=== PATIENT | male | born 1965 | race African-American/Black ===

== ENCOUNTER 2018-06-04 20:15 | Inpatient (IN) ==
[2018-06-04] MEDS ORDERED: ACETAMINOPHEN 500 MG TABLET ONE (21:31)
[2018-06-04] MEDS ORDERED: ACETAMINOPHEN 500 MG TABLET PO STA (21:32)
[2018-06-04 21:40] LABS: Basophils % 0.1 % (0.0-0.8); Eosinophils # 0.1 10*3/uL (0.0-0.87); Eosinophils % 0.7 % (0.00-10.9); Hematocrit 31.7 VOL% (42.0-52.0); Hemoglobin 9.8 GM/DL (14.0-18.0); Immature Granulocytes % 0.9 %; Immature Granulocytes Absolute 0.09 #; Lymphocytes # 0.6 10*3/uL (1.4-4.0); Lymphocytes % 5.3 % (21.2-54.2); Mean Corpuscular HGB Conc 30.9 GM/DL (32-36); Mean Corpuscular Hemoglobin 29 PG (27-34); Mean Corpuscular Volume 94.9 FL (87-102); Mean Platelet Volume 10.1 FL (9.6-12.0); Monocytes # 0.1 10*3/uL (0.11-0.8); Monocytes % 0.9 % (1.7-12.7); Neutrophils # 9.7 10*3/uL (1.4-7.4); Neutrophils % 92.1 % (38.7-73.9); Platelet Count 257 T/CUMM (130-400); Red Blood Count 3.34 MC/CUMM (3.8-5.5); Red Cell Distribution Width 16.1 % (9.3-17.3); White Blood Count 10.6 T/CUMM (4-12)
[2018-06-04 21:58] LABS: Band Neutrophils 7 % (0-10); Eosinophils 1 % (0-10); Lymphocytes 4 % (20-55); Segmented Neutrophils 88 % (50-85)
[2018-06-04 21:59] LABS: Anisocytosis 1+; Hypochromasia Slight; Platelet Estimate Adequate
[2018-06-04 22:00] LABS: Total Cells Counted 100
[2018-06-04 22:06] LABS: Albumin 2.9 G/DL (3.4-5.0); Bilirubin,Total 1.1 MG/DL (0.2-1.0); Calcium 8.4 MG/DL (8.5-10.1); Osmolality,Calculated 280.3 MOS/KG (273-304); Potassium 3.7 MMOL/L (3.5-5.1); Total Protein 8.4 G/DL (6.4-8.3)
[2018-06-04] MEDS ORDERED: SODIUM CHLORIDE 0.9% 1,000 ML IV STA (22:33)
[2018-06-04] MEDS ORDERED: GENTAMICIN INJ 80 MG in SODIUM CHLORIDE 0.9% 100 ML IV STA (22:33)
[2018-06-04] MEDS ORDERED: ALBUTEROL 2.5 MG/3 ML NEB RESP TX PRN (23:13)
[2018-06-04] MEDS ORDERED: SODIUM CHLORIDE 0.9% 1,000 ML IV ONE (23:24)
[2018-06-04] MEDS ORDERED: GENTAMICIN INJ 50 ML IV STA (23:29)
[2018-06-05 01:08] LABS: Apearance,Urine CLOUDY (Clear); Bacteria,Urine Many /HPF (Few); Bilirubin,Urine Negative (Negative); Blood, Urine Moderate mg/dL (Negative); Glucose,Urine (UA) Negative (Negative); Hyaline Casts,Urine 72 /LPF (0-3); Ketones,Urine 5 mg/dL (Negative); Mucus,Urine Occasional /LPF (Occasional); Nitrite,Urine Negative (Negative); Protein,Urine 100 MG/DL; RBC,Urine 74 /HPF (0-4); Squamous Epithelial Cell,Urine Occasional /HPF (0-10); Urine Color Amber (Yellow); Urine Specific Gravity 1.016 (1.001-1.035); WBC,Urine 642 /HPF (0-6)
[2018-06-05] MEDS: LEVOFLOXACIN INJ 500 MG in PREMIX 1 EACH IV SCH ×2 (02:12→22:42)
[2018-06-05] MEDS: SODIUM CHLORIDE 0.9% 1,000 ML IV SCH ×3 (02:13→17:22)
[2018-06-05] MEDS: PANTOPRAZOLE 40 MG VIAL IV SCH ×2 (02:14→22:42)
[2018-06-05] MEDS ORDERED: SODIUM CHLORIDE 0.9% 1,000 ML IV ONE (02:22)
[2018-06-05] MEDS ORDERED: SODIUM CHLORIDE 0.9% 500 ML IV ONE (02:25)
[2018-06-05] MEDS ORDERED: NOREPINEPHRINE 4 MG/4 ML VIAL IV ONE (03:26)
[2018-06-05 04:00] LABS: Basophils % 0.2 % (0.0-0.8); Eosinophils % 0.1 % (0.00-10.9); Hematocrit 26.8 VOL% (42.0-52.0); Hemoglobin 8.4 GM/DL (14.0-18.0); Immature Granulocytes % 0.9 %; Immature Granulocytes Absolute 0.16 #; Lymphocytes # 0.6 10*3/uL (1.4-4.0); Lymphocytes % 3.3 % (21.2-54.2); Mean Corpuscular HGB Conc 31.3 GM/DL (32-36); Mean Corpuscular Hemoglobin 29 PG (27-34); Mean Corpuscular Volume 93.1 FL (87-102); Monocytes # 0.4 10*3/uL (0.11-0.8); Monocytes % 2.6 % (1.7-12.7); Neutrophils # 15.7 10*3/uL (1.4-7.4); Neutrophils % 92.9 % (38.7-73.9); Platelet Count 235 T/CUMM (130-400); Red Blood Count 2.88 MC/CUMM (3.8-5.5); Red Cell Distribution Width 16.3 % (9.3-17.3); White Blood Count 16.9 T/CUMM (4-12)
[2018-06-05] MEDS ORDERED: VANCOMYCIN INJ 1,250 MG in SODIUM CHLORIDE 0.9% 250 ML IV SCH (04:00)
[2018-06-05 04:32] LABS: Albumin 2.3 G/DL (3.4-5.0); Bilirubin,Total 1.9 MG/DL (0.2-1.0); Calcium 7.8 MG/DL (8.5-10.1); Potassium 3.8 MMOL/L (3.5-5.1); Total Protein 7.1 G/DL (6.4-8.3)
[2018-06-05 04:36] LABS: Band Neutrophils 15 % (0-10); Lymphocytes 5 % (20-55); Metamyelocytes 1 %; Myelocytes 2 %; Segmented Neutrophils 73 % (50-85)
[2018-06-05 04:37] LABS: Hypochromasia 1+; Platelet Estimate Normal; Polychromasia Few
[2018-06-05 04:38] LABS: Total Cells Counted 100
[2018-06-05] MEDS: NOREPINEPHRINE 8 MG in SODIUM CHLORIDE 0.9% 242 ML IV PRN (04:40)
[2018-06-05 04:49] LABS: Lactic Acid 3.3 MMOL/L (0.4-2.0)
[2018-06-05] MEDS ORDERED: SKIN HEALING OINT (AQUAPHOR) 50 GM TUBE TOP PRN (09:33)
[2018-06-05] MEDS: ENOXAPARIN 40 MG/0.4 ML SYRINGE SUBCUT SCH (10:25)
[2018-06-05] MEDS: MORPHINE 4 MG/1 ML VIAL IV PRN ×2 (14:01→22:42)
[2018-06-05] MEDS: SKIN HEALING OINT (AQUAPHOR) 50 GM TUBE TOP SCH (17:22)
[2018-06-05] MEDS ORDERED: ACETAMINOPHEN 500 MG TABLET PO ONE (20:13)
[2018-06-06] MEDS: SODIUM CHLORIDE 0.9% 1,000 ML IV SCH ×3 (02:00→18:26)
[2018-06-06 05:09] LABS: Basophils # 0.1 10*3/uL (0.0-0.2); Basophils % 0.3 % (0.0-0.8); Eosinophils # 0.1 10*3/uL (0.0-0.87); Eosinophils % 0.4 % (0.00-10.9); Hematocrit 27.3 VOL% (42.0-52.0); Hemoglobin 8.3 GM/DL (14.0-18.0); Immature Granulocytes % 2.3 %; Immature Granulocytes Absolute 0.45 #; Lymphocytes # 2.4 10*3/uL (1.4-4.0); Lymphocytes % 12.3 % (21.2-54.2); Mean Corpuscular HGB Conc 30.4 GM/DL (32-36); Mean Corpuscular Hemoglobin 28 PG (27-34); Mean Corpuscular Volume 92.5 FL (87-102); Mean Platelet Volume 10.8 FL (9.6-12.0); Monocytes # 1.2 10*3/uL (0.11-0.8); Neutrophils # 15.3 10*3/uL (1.4-7.4); Neutrophils % 78.7 % (38.7-73.9); Platelet Count 230 T/CUMM (130-400); Red Blood Count 2.95 MC/CUMM (3.8-5.5); Red Cell Distribution Width 16.8 % (9.3-17.3); White Blood Count 19.5 T/CUMM (4-12)
[2018-06-06 05:17] LABS: Potassium 3.6 MMOL/L (3.5-5.1)
[2018-06-06 05:32] LABS: Band Neutrophils 7 % (0-10); Hypochromasia 1+; Lymphocytes 13 % (20-55); Platelet Estimate Adequate; Segmented Neutrophils 73 % (50-85); Total Cells Counted 100
[2018-06-06] MEDS: ACETAMINOPHEN 325 MG TABLET PO PRN ×2 (07:27→21:26)
[2018-06-06] MEDS: SKIN HEALING OINT (AQUAPHOR) 50 GM TUBE TOP SCH (09:50)
[2018-06-06] MEDS: ENOXAPARIN 40 MG/0.4 ML SYRINGE SUBCUT SCH (10:12)
[2018-06-06] MEDS ORDERED: MAGNESIUM SULF RIDER 2 GM in PREMIX 1 EACH IV ONE (10:22)
[2018-06-06] MEDS: MEROPENEM 1,000 MG in SODIUM CHLORIDE 0.9% 100 ML IV SCH ×2 (10:39→19:02)
[2018-06-06] MEDS: NOREPINEPHRINE 8 MG in SODIUM CHLORIDE 0.9% 242 ML IV PRN (14:33)
[2018-06-06] MEDS ORDERED: PROPOFOL 200 MG/20 ML VIAL IV ONE (15:53)
[2018-06-06] MEDS ORDERED: fentaNYL 100 MCG/2 ML VIAL ONE (15:53)
[2018-06-06] MEDS ORDERED: MIDAZOLAM 2 MG/2 ML VIAL ONE (15:53)
[2018-06-06 16:25] LABS: Apearance,Urine CLEAR (Clear); Bacteria,Urine Occasional /HPF (Few); Bilirubin,Urine Negative (Negative); Blood, Urine Large mg/dL (Negative); Glucose,Urine (UA) Negative (Negative); Ketones,Urine Negative (Negative); Nitrite,Urine Negative (Negative); Protein,Urine Negative; RBC,Urine 47 /HPF (0-4); Urine Color Yellow (Yellow); Urine Specific Gravity 1.009 (1.001-1.035); WBC,Urine 18 /HPF (0-6)
[2018-06-06] MEDS: MORPHINE 4 MG/1 ML VIAL IV PRN (21:26)
[2018-06-07] MEDS: LEVOFLOXACIN INJ 750 MG in PREMIX 1 EACH IV SCH ×2 (00:45→23:41)
[2018-06-07] MEDS: PANTOPRAZOLE 40 MG VIAL IV SCH ×2 (00:46→23:41)
[2018-06-07] MEDS: ONDANSETRON 4 MG/2 ML VIAL IV PRN (02:00)
[2018-06-07] MEDS: SODIUM CHLORIDE 0.9% 1,000 ML IV SCH ×3 (03:00→20:23)
[2018-06-07] MEDS: MEROPENEM 1,000 MG in SODIUM CHLORIDE 0.9% 100 ML IV SCH ×3 (03:00→17:45)
[2018-06-07 05:41] LABS: Basophils # 0.1 10*3/uL (0.0-0.2); Basophils % 0.4 % (0.0-0.8); Eosinophils # 0.2 10*3/uL (0.0-0.87); Eosinophils % 0.8 % (0.00-10.9); Hematocrit 25.1 VOL% (42.0-52.0); Hemoglobin 7.9 GM/DL (14.0-18.0); Immature Granulocytes % 2.7 %; Immature Granulocytes Absolute 0.52 #; Lymphocytes # 2.3 10*3/uL (1.4-4.0); Lymphocytes % 11.9 % (21.2-54.2); Mean Corpuscular HGB Conc 31.5 GM/DL (32-36); Mean Corpuscular Hemoglobin 30 PG (27-34); Mean Corpuscular Volume 93.7 FL (87-102); Mean Platelet Volume 10.7 FL (9.6-12.0); Monocytes # 0.9 10*3/uL (0.11-0.8); Monocytes % 4.6 % (1.7-12.7); Neutrophils # 15.6 10*3/uL (1.4-7.4); Neutrophils % 79.6 % (38.7-73.9); Platelet Count 215 T/CUMM (130-400); Red Blood Count 2.68 MC/CUMM (3.8-5.5); Red Cell Distribution Width 16.4 % (9.3-17.3); White Blood Count 19.6 T/CUMM (4-12)
[2018-06-07 05:59] LABS: Band Neutrophils 2 % (0-10); Hypochromasia 1+; Lymphocytes 14 % (20-55); Platelet Estimate Adequate; Segmented Neutrophils 83 % (50-85); Total Cells Counted 100
[2018-06-07 06:00] LABS: Ovalocytes Slight
[2018-06-07 06:14] LABS: Calcium 7.7 MG/DL (8.5-10.1); Osmolality,Calculated 280.1 MOS/KG (273-304); Potassium 3.6 MMOL/L (3.5-5.1)
[2018-06-07] MEDS: ENOXAPARIN 40 MG/0.4 ML SYRINGE SUBCUT SCH (08:50)
[2018-06-07] MEDS: SKIN HEALING OINT (AQUAPHOR) 50 GM TUBE TOP SCH (08:50)
[2018-06-07] MEDS: BACLOFEN 10 MG TABLET PO SCH ×2 (09:30→21:40)
[2018-06-07] MEDS: MORPHINE 4 MG/1 ML VIAL IV PRN ×2 (17:20→21:39)
[2018-06-07] MEDS: NOREPINEPHRINE 8 MG in SODIUM CHLORIDE 0.9% 242 ML IV PRN (21:46)
[2018-06-08] MEDS: SODIUM CHLORIDE 0.9% 1,000 ML IV SCH ×4 (00:36→23:34)
[2018-06-08] MEDS: MEROPENEM 1,000 MG in SODIUM CHLORIDE 0.9% 100 ML IV SCH ×3 (02:31→18:00)
[2018-06-08 04:43] LABS: Basophils # 0.1 10*3/uL (0.0-0.2); Basophils % 0.3 % (0.0-0.8); Eosinophils # 0.3 10*3/uL (0.0-0.87); Eosinophils % 1.5 % (0.00-10.9); Hematocrit 24.2 VOL% (42.0-52.0); Hemoglobin 7.5 GM/DL (14.0-18.0); Immature Granulocytes % 0.6 %; Lymphocytes % 17.5 % (21.2-54.2); Mean Corpuscular Hemoglobin 29 PG (27-34); Mean Corpuscular Volume 92.4 FL (87-102); Mean Platelet Volume 11.1 FL (9.6-12.0); Monocytes # 0.7 10*3/uL (0.11-0.8); Monocytes % 4.2 % (1.7-12.7); Neutrophils # 13.1 10*3/uL (1.4-7.4); Neutrophils % 75.9 % (38.7-73.9); Platelet Count 200 T/CUMM (130-400); Red Blood Count 2.62 MC/CUMM (3.8-5.5); Red Cell Distribution Width 16.3 % (9.3-17.3); White Blood Count 17.3 T/CUMM (4-12)
[2018-06-08 05:05] LABS: Calcium 7.5 MG/DL (8.5-10.1); Osmolality,Calculated 277.3 MOS/KG (273-304); Potassium 3.4 MMOL/L (3.5-5.1)
[2018-06-08 05:43] LABS: Band Neutrophils 3 % (0-10); Eosinophils 4 % (0-10); Hypochromasia 1+; Lymphocytes 21 % (20-55); Segmented Neutrophils 69 % (50-85); Total Cells Counted 100
[2018-06-08 05:44] LABS: Atypical Lymphocytes Few; Microcytosis 1+
[2018-06-08] MEDS: ENOXAPARIN 40 MG/0.4 ML SYRINGE SUBCUT SCH (09:08)
[2018-06-08] MEDS: BACLOFEN 10 MG TABLET PO SCH ×2 (09:08→20:54)
[2018-06-08] MEDS: MORPHINE 4 MG/1 ML VIAL IV PRN ×2 (09:08→19:15)
[2018-06-08] MEDS: SKIN HEALING OINT (AQUAPHOR) 50 GM TUBE TOP SCH (10:20)
[2018-06-08] MEDS: GENTAMICIN INJ 320 MG in SODIUM CHLORIDE 0.9% 100 ML IV SCH (12:30)
[2018-06-08] MEDS: PANTOPRAZOLE 40 MG VIAL IV SCH (23:42)
[2018-06-09] MEDS: MEROPENEM 1,000 MG in SODIUM CHLORIDE 0.9% 100 ML IV SCH ×3 (02:20→18:00)
[2018-06-09] MEDS: MORPHINE 4 MG/1 ML VIAL IV PRN ×4 (05:14→22:38)
[2018-06-09 06:38] LABS: Calcium 7.5 MG/DL (8.5-10.1); Potassium 3.5 MMOL/L (3.5-5.1)
[2018-06-09] MEDS: NOREPINEPHRINE 8 MG in SODIUM CHLORIDE 0.9% 242 ML IV PRN (07:42)
[2018-06-09] MEDS: SODIUM CHLORIDE 0.9% 1,000 ML IV SCH ×2 (07:42→15:31)
[2018-06-09] MEDS: SKIN HEALING OINT (AQUAPHOR) 50 GM TUBE TOP SCH (09:50)
[2018-06-09] MEDS: BACLOFEN 10 MG TABLET PO SCH ×2 (09:50→21:17)
[2018-06-09] MEDS: ENOXAPARIN 40 MG/0.4 ML SYRINGE SUBCUT SCH (09:50)
[2018-06-09] MEDS: GENTAMICIN INJ 320 MG in SODIUM CHLORIDE 0.9% 100 ML IV SCH (12:33)
[2018-06-10] MEDS: SODIUM CHLORIDE 0.9% 1,000 ML IV SCH ×4 (00:03→23:37)
[2018-06-10] MEDS: PANTOPRAZOLE 40 MG VIAL IV SCH (02:00)
[2018-06-10] MEDS: MEROPENEM 1,000 MG in SODIUM CHLORIDE 0.9% 100 ML IV SCH ×3 (04:05→18:33)
[2018-06-10 06:01] LABS: Basophils # 0.1 10*3/uL (0.0-0.2); Basophils % 0.4 % (0.0-0.8); Eosinophils # 0.4 10*3/uL (0.0-0.87); Eosinophils % 3.2 % (0.00-10.9); Hematocrit 24.5 VOL% (42.0-52.0); Hemoglobin 7.7 GM/DL (14.0-18.0); Immature Granulocytes % 3.3 %; Immature Granulocytes Absolute 0.42 #; Lymphocytes # 3.6 10*3/uL (1.4-4.0); Lymphocytes % 27.9 % (21.2-54.2); Mean Corpuscular HGB Conc 31.4 GM/DL (32-36); Mean Corpuscular Hemoglobin 29 PG (27-34); Mean Corpuscular Volume 91.1 FL (87-102); Monocytes # 0.7 10*3/uL (0.11-0.8); Monocytes % 5.3 % (1.7-12.7); Neutrophils # 7.7 10*3/uL (1.4-7.4); Neutrophils % 59.9 % (38.7-73.9); Platelet Count 197 T/CUMM (130-400); Red Blood Count 2.69 MC/CUMM (3.8-5.5); Red Cell Distribution Width 16.5 % (9.3-17.3); White Blood Count 12.8 T/CUMM (4-12)
[2018-06-10] MEDS: MORPHINE 4 MG/1 ML VIAL IV PRN ×3 (06:27→23:38)
[2018-06-10 06:28] LABS: Calcium 7.7 MG/DL (8.5-10.1); Osmolality,Calculated 280.1 MOS/KG (273-304); Potassium 3.4 MMOL/L (3.5-5.1)
[2018-06-10] MEDS: SKIN HEALING OINT (AQUAPHOR) 50 GM TUBE TOP SCH (09:04)
[2018-06-10] MEDS: ENOXAPARIN 40 MG/0.4 ML SYRINGE SUBCUT SCH (09:04)
[2018-06-10] MEDS: BACLOFEN 10 MG TABLET PO SCH ×2 (09:04→20:55)
[2018-06-10] MEDS: GENTAMICIN INJ 320 MG in SODIUM CHLORIDE 0.9% 100 ML IV SCH (12:27)
[2018-06-10] MEDS: ONDANSETRON 4 MG/2 ML VIAL IV PRN (20:56)
[2018-06-11] MEDS: MEROPENEM 1,000 MG in SODIUM CHLORIDE 0.9% 100 ML IV SCH ×3 (01:35→18:29)
[2018-06-11 06:32] LABS: Calcium 7.6 MG/DL (8.5-10.1); Osmolality,Calculated 277.3 MOS/KG (273-304); Potassium 3.5 MMOL/L (3.5-5.1)
[2018-06-11] MEDS: BACLOFEN 10 MG TABLET PO SCH ×2 (08:27→20:28)
[2018-06-11] MEDS: PANTOPRAZOLE 40 MG TABLET PO SCH (08:27)
[2018-06-11] MEDS: ENOXAPARIN 40 MG/0.4 ML SYRINGE SUBCUT SCH (08:27)
[2018-06-11] MEDS: MORPHINE 4 MG/1 ML VIAL IV PRN ×3 (08:31→20:28)
[2018-06-11] MEDS: SODIUM CHLORIDE 0.9% 1,000 ML IV SCH ×2 (10:18→20:27)
[2018-06-11] MEDS: SKIN HEALING OINT (AQUAPHOR) 50 GM TUBE TOP SCH (10:19)
[2018-06-11] MEDS: GENTAMICIN INJ 320 MG in SODIUM CHLORIDE 0.9% 100 ML IV SCH (14:57)
[2018-06-11] MEDS: DOCUSATE SODIUM 100 MG CAPSULE PO PRN (20:28)
[2018-06-11] MEDS: ONDANSETRON 4 MG/2 ML VIAL IV PRN (20:32)
[2018-06-12] MEDS: MEROPENEM 1,000 MG in SODIUM CHLORIDE 0.9% 100 ML IV SCH ×2 (01:48→09:29)
[2018-06-12] MEDS: SODIUM CHLORIDE 0.9% 1,000 ML IV SCH ×4 (01:50→23:47)
[2018-06-12] MEDS: ACETAMINOPHEN 325 MG TABLET PO PRN (06:47)
[2018-06-12] MEDS: MORPHINE 4 MG/1 ML VIAL IV PRN ×3 (09:21→21:18)
[2018-06-12] MEDS: BACLOFEN 10 MG TABLET PO SCH ×2 (09:21→21:17)
[2018-06-12] MEDS: PANTOPRAZOLE 40 MG TABLET PO SCH (09:21)
[2018-06-12] MEDS: ENOXAPARIN 40 MG/0.4 ML SYRINGE SUBCUT SCH (09:27)
[2018-06-12] MEDS: SKIN HEALING OINT (AQUAPHOR) 50 GM TUBE TOP SCH (14:10)
[2018-06-12] MEDS: GENTAMICIN INJ 320 MG in SODIUM CHLORIDE 0.9% 100 ML IV SCH (15:00)
[2018-06-13 06:39] LABS: Basophils # 0.1 10*3/uL (0.0-0.2); Basophils % 0.5 % (0.0-0.8); Eosinophils # 0.4 10*3/uL (0.0-0.87); Eosinophils % 3.2 % (0.00-10.9); Hematocrit 22.5 VOL% (42.0-52.0); Immature Granulocytes % 7.4 %; Immature Granulocytes Absolute 0.91 #; Lymphocytes # 3.7 10*3/uL (1.4-4.0); Lymphocytes % 30.4 % (21.2-54.2); Mean Corpuscular HGB Conc 31.1 GM/DL (32-36); Mean Corpuscular Hemoglobin 28 PG (27-34); Mean Corpuscular Volume 90.7 FL (87-102); Mean Platelet Volume 10.9 FL (9.6-12.0); Monocytes # 0.6 10*3/uL (0.11-0.8); Neutrophils # 6.6 10*3/uL (1.4-7.4); Neutrophils % 53.5 % (38.7-73.9); Platelet Count 318 T/CUMM (130-400); Red Blood Count 2.48 MC/CUMM (3.8-5.5); Red Cell Distribution Width 16.2 % (9.3-17.3); White Blood Count 12.3 T/CUMM (4-12)
[2018-06-13 06:53] LABS: Band Neutrophils 2 % (0-10); Eosinophils 5 % (0-10); Lymphocytes 27 % (20-55); Segmented Neutrophils 62 % (50-85); Total Cells Counted 100
[2018-06-13 06:54] LABS: Atypical Lymphocytes Few; Hypochromasia 1+; Microcytosis 1+; Ovalocytes Slight; Platelet Estimate Adequate
[2018-06-13 06:56] LABS: Calcium 7.4 MG/DL (8.5-10.1); Osmolality,Calculated 279.1 MOS/KG (273-304); Potassium 3.8 MMOL/L (3.5-5.1)
[2018-06-13] MEDS: SKIN HEALING OINT (AQUAPHOR) 50 GM TUBE TOP SCH (09:01)
[2018-06-13] MEDS: ENOXAPARIN 40 MG/0.4 ML SYRINGE SUBCUT SCH (09:01)
[2018-06-13] MEDS: BACLOFEN 10 MG TABLET PO SCH ×2 (09:01→21:38)
[2018-06-13] MEDS: SODIUM CHLORIDE 0.9% 1,000 ML IV SCH ×4 (09:01→23:09)
[2018-06-13] MEDS: PANTOPRAZOLE 40 MG TABLET PO SCH (09:01)
[2018-06-13] MEDS: MORPHINE 4 MG/1 ML VIAL IV PRN ×2 (09:05→14:14)
[2018-06-13] MEDS: DOCUSATE SODIUM 100 MG CAPSULE PO PRN (09:13)
[2018-06-13] MEDS: GENTAMICIN INJ 320 MG in SODIUM CHLORIDE 0.9% 100 ML IV SCH (15:35)
[2018-06-13] MEDS ORDERED: SODIUM CHLORIDE 0.9% 1,000 ML IV PRN ×3 (17:06→18:56)
[2018-06-13 19:36] LABS: % Iron Saturation 14.9 % (18-50); Ferritin 891.3 ng/ml (26-388)
[2018-06-13] MEDS: ACETAMINOPHEN 325 MG TABLET PO PRN (21:40)
[2018-06-14 06:43] LABS: Hematocrit 30.2 VOL% (42.0-52.0); Mean Corpuscular HGB Conc 32.1 GM/DL (32-36); Mean Platelet Volume 10.8 FL (9.6-12.0)
[2018-06-14 06:48] LABS: Basophils # 0.1 10*3/uL (0.0-0.2); Basophils % 0.5 % (0.0-0.8); Eosinophils # 0.4 10*3/uL (0.0-0.87); Immature Granulocytes Absolute 0.66 #; Lymphocytes # 4.2 10*3/uL (1.4-4.0); Lymphocytes % 31.8 % (21.2-54.2); Mean Corpuscular Hemoglobin 29 PG (27-34); Monocytes # 0.6 10*3/uL (0.11-0.8); Monocytes % 4.6 % (1.7-12.7); Neutrophils # 7.3 10*3/uL (1.4-7.4); Neutrophils % 55.1 % (38.7-73.9); Platelet Count 362 T/CUMM (130-400); Red Cell Distribution Width 15.9 % (9.3-17.3); White Blood Count 13.2 T/CUMM (4-12)
[2018-06-14 06:49] LABS: Red Blood Count 3.32 MC/CUMM (3.8-5.5)
[2018-06-14 06:50] LABS: Hemoglobin 9.7 GM/DL (14.0-18.0)
[2018-06-14 06:53] LABS: Calcium 7.8 MG/DL (8.5-10.1); Osmolality,Calculated 273.5 MOS/KG (273-304); Potassium 4.1 MMOL/L (3.5-5.1)
[2018-06-14 07:01] LABS: Band Neutrophils 2 % (0-10); Lymphocytes 36 % (20-55); Segmented Neutrophils 53 % (50-85); Total Cells Counted 100
[2018-06-14 07:02] LABS: Eosinophils 4 % (0-10); Hypochromasia 1+; Platelet Estimate Adequate
[2018-06-14 07:03] LABS: Atypical Lymphocytes Few; Microcytosis 1+
[2018-06-14] MEDS: MORPHINE 4 MG/1 ML VIAL IV PRN ×3 (08:26→21:14)
[2018-06-14] MEDS: ENOXAPARIN 40 MG/0.4 ML SYRINGE SUBCUT SCH (08:26)
[2018-06-14] MEDS: BACLOFEN 10 MG TABLET PO SCH ×2 (08:26→21:14)
[2018-06-14] MEDS: PANTOPRAZOLE 40 MG TABLET PO SCH (08:26)
[2018-06-14] MEDS: AMOXICILLIN/CLAV 875 MG TABLET PO SCH ×2 (11:38→21:14)
[2018-06-14] MEDS: SKIN HEALING OINT (AQUAPHOR) 50 GM TUBE TOP SCH (11:40)
[2018-06-14] MEDS: FERROUS SULFATE 325 MG TABLET PO SCH ×2 (15:00→21:14)
[2018-06-14] MEDS: SODIUM CHLORIDE 0.9% 1,000 ML IV SCH (21:13)
[2018-06-15 05:57] LABS: Basophils % 0.3 % (0.0-0.8); Eosinophils # 0.4 10*3/uL (0.0-0.87); Eosinophils % 3.3 % (0.00-10.9); Hematocrit 30.6 VOL% (42.0-52.0); Hemoglobin 9.7 GM/DL (14.0-18.0); Immature Granulocytes % 2.4 %; Immature Granulocytes Absolute 0.29 #; Lymphocytes # 3.6 10*3/uL (1.4-4.0); Lymphocytes % 30.4 % (21.2-54.2); Mean Corpuscular HGB Conc 31.7 GM/DL (32-36); Mean Corpuscular Hemoglobin 29 PG (27-34); Mean Corpuscular Volume 90.5 FL (87-102); Mean Platelet Volume 10.6 FL (9.6-12.0); Monocytes # 0.5 10*3/uL (0.11-0.8); Monocytes % 4.4 % (1.7-12.7); Neutrophils # 7.1 10*3/uL (1.4-7.4); Neutrophils % 59.2 % (38.7-73.9); Platelet Count 410 T/CUMM (130-400); Red Blood Count 3.38 MC/CUMM (3.8-5.5); Red Cell Distribution Width 15.6 % (9.3-17.3)
[2018-06-15 06:10] LABS: Calcium 7.7 MG/DL (8.5-10.1); Osmolality,Calculated 275.4 MOS/KG (273-304); Potassium 4.3 MMOL/L (3.5-5.1)
[2018-06-15] MEDS: MORPHINE 4 MG/1 ML VIAL IV PRN ×2 (06:44→10:17)
[2018-06-15] MEDS: AMOXICILLIN/CLAV 875 MG TABLET PO SCH (09:09)
[2018-06-15] MEDS: FERROUS SULFATE 325 MG TABLET PO SCH (09:09)
[2018-06-15] MEDS: ENOXAPARIN 40 MG/0.4 ML SYRINGE SUBCUT SCH (09:09)
[2018-06-15] MEDS: BACLOFEN 10 MG TABLET PO SCH (09:09)
[2018-06-15] MEDS: SKIN HEALING OINT (AQUAPHOR) 50 GM TUBE TOP SCH (09:09)
[2018-06-15] MEDS: PANTOPRAZOLE 40 MG TABLET PO SCH (09:09)
[2018-06-15 11:12] VITALS: BP 99/70
== END 2018-06-15 13:24 | disposition home health service (06) | DRG 871 ==
LOC: EDBD → EDUNIT# → N.ED 20:15 → N.EDINP 23:13 → SUATTDRO 23:13 → N.ICU 23:40 → N.5E 06-10 15:24
PROVIDERS: ADMIT Internal Medicine; ATTEND Internal Medicine

== ENCOUNTER 2019-11-01 10:30 | Inpatient (IN) ==
[2019-11-01] MEDS ORDERED: ONDANSETRON 4 MG/2 ML VIAL IV STA (10:50)
[2019-11-01] MEDS ORDERED: PIPERACILLIN/TAZOBACTAM 3,375 MG in SODIUM CHLORIDE 0.9% 100 ML IV STA (10:50)
[2019-11-01] MEDS ORDERED: SODIUM CHLORIDE 0.9% 2,000 ML IV STA (10:50)
[2019-11-01 11:01] LABS: Basophils % 0.2 % (0.0-0.8); Eosinophils # 0.1 10*3/uL (0.0-0.87); Eosinophils % 0.3 % (0.00-10.9); Hematocrit 25.9 VOL% (42.0-52.0); Hemoglobin 7.5 GM/DL (14.0-18.0); Immature Granulocytes % 0.6 %; Lymphocytes # 3.5 10*3/uL (1.4-4.0); Lymphocytes % 21.9 % (21.2-54.2); Mean Corpuscular Volume 101.2 FL (87-102); Mean Platelet Volume 9.2 FL (9.6-12.0); Monocytes % 6.4 % (1.7-12.7); Neutrophils % 70.6 % (38.7-73.9); Platelet Count 733 T/CUMM (130-400); Red Blood Count 2.56 MC/CUMM (3.8-5.5); Red Cell Distribution Width 16.9 % (9.3-17.3)
[2019-11-01 11:13] LABS: Alanine Aminotransferase 10 U/L (16-61); Albumin 1.2 G/DL (3.4-5.0); Alkaline Phosphatase 339 U/L (45-117); Aspartate Amino Transferase 14 U/L (0-37); Bilirubin,Total < 0.39 MG/DL (0.2-1.0); Blood Urea Nitrogen 22 MG/DL (7-18); Calcium 7.7 MG/DL (8.5-10.1); Estimated Glom Filtration Rate 108 ML/MIN; Glucose 71 MG/DL (74-106); Osmolality,Calculated 275.7 MOS/KG (273-304); Total Protein 8.7 G/DL (6.4-8.3)
[2019-11-01 12:11] LABS: Apearance,Urine CLOUDY (Clear); Bacteria,Urine Many /HPF (Few); Bilirubin,Urine Negative (Negative); Blood, Urine Large mg/dL (Negative); Glucose,Urine (UA) Negative (Negative); Ketones,Urine Negative (Negative); Mucus,Urine Occasional /LPF (Occasional); Nitrite,Urine Negative (Negative); Protein,Urine 100 MG/DL; RBC,Urine 81 /HPF (0-4); Squamous Epithelial Cell,Urine Occasional /HPF (0-10); Urine Color Amber (Yellow); WBC,Urine 1979 /HPF (0-6)
[2019-11-01] MEDS ORDERED: ONDANSETRON 4 MG/2 ML VIAL IV PRN (13:50)
[2019-11-01] MEDS: SODIUM CHLORIDE 0.9% 1,000 ML IV SCH ×2 (14:20→23:46)
[2019-11-01] MEDS: cefTRIAXone 1,000 MG in SYRINGE 1 EACH IV SCH (14:35)
[2019-11-01] MEDS: ENOXAPARIN 40 MG/0.4 ML SYRINGE SUBCUT SCH (14:35)
[2019-11-01] MEDS: POTASSIUM CHLORIDE 20 MEQ TABLET PO PRN ×3 (17:56→22:02)
[2019-11-01] MEDS: DIAZEPAM 5 MG TABLET PO SCH (21:07)
[2019-11-02 04:57] LABS: Basophils # 0.1 10*3/uL (0.0-0.2); Basophils % 0.3 % (0.0-0.8); Eosinophils # 0.1 10*3/uL (0.0-0.87); Eosinophils % 0.8 % (0.00-10.9); Hematocrit 22.7 VOL% (42.0-52.0); Immature Granulocytes % 1.2 %; Lymphocytes # 4.1 10*3/uL (1.4-4.0); Lymphocytes % 24.7 % (21.2-54.2); Mean Corpuscular HGB Conc 28.2 GM/DL (32-36); Mean Corpuscular Volume 103.2 FL (87-102); Mean Platelet Volume 9.3 FL (9.6-12.0); Monocytes % 7.8 % (1.7-12.7); Neutrophils % 65.2 % (38.7-73.9); Platelet Count 618 T/CUMM (130-400); White Blood Count 16.7 T/CUMM (4-12)
[2019-11-02 05:07] LABS: Hemoglobin 6.4 GM/DL (14.0-18.0)
[2019-11-02] MEDS ORDERED: SODIUM CHLORIDE 0.9% 1,000 ML IV PRN (05:25)
[2019-11-02 05:26] LABS: Calcium 7.4 MG/DL (8.5-10.1); Osmolality,Calculated 288.7 MOS/KG (273-304)
[2019-11-02] MEDS: cefTRIAXone 1,000 MG in SYRINGE 1 EACH IV SCH (10:00)
[2019-11-02] MEDS: PANTOPRAZOLE 40 MG TABLET PO SCH (10:00)
[2019-11-02] MEDS: SODIUM CHLORIDE 0.9% 1,000 ML IV SCH ×2 (15:18→22:55)
[2019-11-02] MEDS: ENOXAPARIN 40 MG/0.4 ML SYRINGE SUBCUT SCH (15:18)
[2019-11-02] MEDS ORDERED: ALUMINUM/MAGNES/SIMETH MAX STR 30 ML UDCUP PO PRN (17:07)
[2019-11-02] MEDS: DIAZEPAM 5 MG TABLET PO SCH (21:27)
[2019-11-03 07:22] LABS: Basophils # 0.1 10*3/uL (0.0-0.2); Basophils % 0.3 % (0.0-0.8); Eosinophils # 0.2 10*3/uL (0.0-0.87); Eosinophils % 1.5 % (0.00-10.9); Hematocrit 27.3 VOL% (42.0-52.0); Immature Granulocytes % 1.6 %; Immature Granulocytes Absolute 0.25 #; Lymphocytes # 4.4 10*3/uL (1.4-4.0); Lymphocytes % 27.9 % (21.2-54.2); Mean Corpuscular HGB Conc 29.7 GM/DL (32-36); Mean Corpuscular Volume 99.3 FL (87-102); Mean Platelet Volume 9.5 FL (9.6-12.0); Monocytes % 6.1 % (1.7-12.7); Neutrophils % 62.6 % (38.7-73.9); Platelet Count 536 T/CUMM (130-400); Red Blood Count 2.75 MC/CUMM (3.8-5.5); Red Cell Distribution Width 17.2 % (9.3-17.3); White Blood Count 15.9 T/CUMM (4-12)
[2019-11-03 07:23] LABS: Hemoglobin 8.1 GM/DL (14.0-18.0)
[2019-11-03 07:45] LABS: Calcium 7.4 MG/DL (8.5-10.1); Osmolality,Calculated 278.4 MOS/KG (273-304)
[2019-11-03] MEDS: SODIUM CHLORIDE 0.9% 1,000 ML IV SCH ×2 (08:20→17:51)
[2019-11-03] MEDS: PANTOPRAZOLE 40 MG TABLET PO SCH (08:44)
[2019-11-03] MEDS: cefTRIAXone 1,000 MG in SYRINGE 1 EACH IV SCH (08:45)
[2019-11-03] MEDS: VANCOMYCIN INJ 1,000 MG in SODIUM CHLORIDE 0.9% 250 ML IV SCH ×2 (08:48→21:11)
[2019-11-03] MEDS: ENOXAPARIN 40 MG/0.4 ML SYRINGE SUBCUT SCH (15:03)
[2019-11-03] MEDS: DIAZEPAM 5 MG TABLET PO SCH (21:10)
[2019-11-04] MEDS: SODIUM CHLORIDE 0.9% 1,000 ML IV SCH (03:12)
[2019-11-04 05:52] LABS: Basophils # 0.1 10*3/uL (0.0-0.2); Basophils % 0.5 % (0.0-0.8); Eosinophils # 0.3 10*3/uL (0.0-0.87); Eosinophils % 1.8 % (0.00-10.9); Hematocrit 27.8 VOL% (42.0-52.0); Hemoglobin 8.2 GM/DL (14.0-18.0); Immature Granulocytes % 1.7 %; Immature Granulocytes Absolute 0.27 #; Lymphocytes # 4.3 10*3/uL (1.4-4.0); Lymphocytes % 26.6 % (21.2-54.2); Mean Corpuscular HGB Conc 29.5 GM/DL (32-36); Mean Corpuscular Volume 100.4 FL (87-102); Mean Platelet Volume 9.4 FL (9.6-12.0); Monocytes % 5.5 % (1.7-12.7); Neutrophils % 63.9 % (38.7-73.9); Platelet Count 444 T/CUMM (130-400); Red Blood Count 2.77 MC/CUMM (3.8-5.5); Red Cell Distribution Width 16.5 % (9.3-17.3)
[2019-11-04 06:27] LABS: Calcium 6.9 MG/DL (8.5-10.1); Osmolality,Calculated 284.8 MOS/KG (273-304)
[2019-11-04] MEDS: PANTOPRAZOLE 40 MG TABLET PO SCH (09:52)
[2019-11-04] MEDS: VANCOMYCIN INJ 1,000 MG in SODIUM CHLORIDE 0.9% 250 ML IV SCH (09:55)
[2019-11-04] MEDS: cefTRIAXone 1,000 MG in SYRINGE 1 EACH IV SCH (09:56)
[2019-11-04 12:37] VITALS: BP 88/51
== END 2019-11-04 14:40 | disposition home health service (06) | DRG 698 ==
LOC: EDUNIT# → EDBD → N.ED 10:30 → SUPCPDRO 13:50 → N.EDINP 13:50 → N.2E 14:40
PROVIDERS: ADMIT Internal Medicine Geriatric Medicine; ATTEND Internal Medicine Geriatric Medicine

== ENCOUNTER 2020-02-28 14:38 | Inpatient (IN) ==
[2020-02-28 16:34] LABS: Basophils % 0.3 % (0.0-0.8); Eosinophils # 0.5 10*3/uL (0.0-0.87); Eosinophils % 5.1 % (0.00-10.9); Hematocrit 26.2 VOL% (42.0-52.0); Hemoglobin 8.6 GM/DL (14.0-18.0); Immature Granulocytes % 0.8 %; Immature Granulocytes Absolute 0.07 #; Lymphocytes % 33.5 % (21.2-54.2); Mean Corpuscular HGB Conc 32.8 GM/DL (32-36); Mean Corpuscular Volume 99.2 FL (87-102); Mean Platelet Volume 9.4 FL (9.6-12.0); Monocytes % 7.5 % (1.7-12.7); Neutrophils % 52.8 % (38.7-73.9); Platelet Count 406 T/CUMM (130-400); Red Blood Count 2.64 MC/CUMM (3.8-5.5); Red Cell Distribution Width 17.2 % (9.3-17.3); White Blood Count 8.9 T/CUMM (4-12)
[2020-02-28] MEDS ORDERED: SODIUM CHLORIDE 0.9% 1,000 ML IV STA (16:41)
[2020-02-28 16:53] LABS: Apearance,Urine CLOUDY (Clear); Bacteria,Urine Moderate /HPF (Few); Bilirubin,Urine Negative (Negative); Blood, Urine Small mg/dL (Negative); Glucose,Urine (UA) Negative (Negative); Hyaline Casts,Urine 21 /LPF (0-3); Ketones,Urine Negative (Negative); Mucus,Urine Few /LPF (Occasional); Nitrite,Urine Negative (Negative); Protein,Urine 30 MG/DL; RBC,Urine 59 /HPF (0-4); Squamous Epithelial Cell,Urine Occasional /HPF (0-10); Urine Color Yellow (Yellow); Urine Specific Gravity 1.019 (1.001-1.035); Urine Urobilinogen < 2.0 EU/DL (0.2-1.0); WBC,Urine 908 /HPF (0-6)
[2020-02-28 17:20] LABS: Albumin 1.7 G/DL (3.4-5.0); Bilirubin,Total 0.5 MG/DL (0.2-1.0); Osmolality,Calculated 284.4 MOS/KG (273-304); Total Protein 8.5 G/DL (6.4-8.3)
[2020-02-28] MEDS ORDERED: MEROPENEM 500 MG in SODIUM CHLORIDE 0.9% 100 ML IV STA ×2 (17:34→18:25)
[2020-02-28] MEDS ORDERED: DEXTROSE 10% 250 ML BAG IV PRN (18:49)
[2020-02-28] MEDS ORDERED: GLUCAGON 1 MG VIAL IM PRN (18:49)
[2020-02-28] MEDS: DEXTROSE 5% NACL 0.45% 1,000 ML IV SCH (21:21)
[2020-02-28] MEDS: PIPERACILLIN/TAZOBACTAM 3,375 MG in SODIUM CHLORIDE 0.9% 100 ML IV SCH (21:21)
[2020-02-28] MEDS: ENOXAPARIN 30 MG/0.3 ML SYRINGE SUBCUT SCH (21:24)
[2020-02-29] MEDS: VANCOMYCIN INJ 1,000 MG in SODIUM CHLORIDE 0.9% 250 ML IV SCH ×2 (01:52→14:27)
[2020-02-29] MEDS: PIPERACILLIN/TAZOBACTAM 3,375 MG in SODIUM CHLORIDE 0.9% 100 ML IV SCH (04:48)
[2020-02-29] MEDS: DIAZEPAM 5 MG TABLET PO SCH (09:49)
[2020-02-29] MEDS: DEXTROSE 5% NACL 0.45% 1,000 ML IV SCH ×3 (11:15→23:59)
[2020-02-29 13:15] LABS: % Iron Saturation 14.4 % (18-50)
[2020-02-29] MEDS: ENOXAPARIN 30 MG/0.3 ML SYRINGE SUBCUT SCH (21:51)
[2020-03-01] MEDS: VANCOMYCIN INJ 1,000 MG in SODIUM CHLORIDE 0.9% 250 ML IV SCH (02:00)
[2020-03-01 05:53] LABS: Basophils % 0.4 % (0.0-0.8); Eosinophils # 0.4 10*3/uL (0.0-0.87); Eosinophils % 5.2 % (0.00-10.9); Hematocrit 23.5 VOL% (42.0-52.0); Hemoglobin 7.1 GM/DL (14.0-18.0); Immature Granulocytes % 0.4 %; Immature Granulocytes Absolute 0.03 #; Lymphocytes # 3.2 10*3/uL (1.4-4.0); Lymphocytes % 38.4 % (21.2-54.2); Mean Corpuscular HGB Conc 30.2 GM/DL (32-36); Mean Corpuscular Volume 99.2 FL (87-102); Mean Platelet Volume 9.7 FL (9.6-12.0); Monocytes % 8.8 % (1.7-12.7); Neutrophils % 46.8 % (38.7-73.9); Platelet Count 392 T/CUMM (130-400); Red Blood Count 2.37 MC/CUMM (3.8-5.5); Red Cell Distribution Width 16.4 % (9.3-17.3); White Blood Count 8.4 T/CUMM (4-12)
[2020-03-01 06:03] LABS: Calcium 8.3 MG/DL (8.5-10.1); Osmolality,Calculated 283.4 MOS/KG (273-304)
[2020-03-01] MEDS: DEXTROSE 5% NACL 0.45% 1,000 ML IV SCH ×3 (06:03→20:57)
[2020-03-01] MEDS: ASCORBIC ACID 500 MG TABLET PO SCH (08:57)
[2020-03-01] MEDS: MULTIVITAMIN (CENTRUM) TABLET PO SCH (08:57)
[2020-03-01] MEDS: cefTRIAXone 1,000 MG in SYRINGE 1 EACH IV SCH (09:00)
[2020-03-01] MEDS ORDERED: ONDANSETRON 4 MG/2 ML VIAL IV ONE (09:05)
[2020-03-01] MEDS ORDERED: ONDANSETRON 4 MG/2 ML VIAL ONE (09:09)
[2020-03-01] MEDS: IRON SUCROSE 200 MG in SODIUM CHLORIDE 0.9% 100 ML IV SCH (09:23)
[2020-03-01] MEDS ORDERED: ONDANSETRON 4 MG/2 ML VIAL IV PRN (09:34)
[2020-03-01] MEDS: DIAZEPAM 5 MG TABLET PO SCH ×2 (09:59→20:56)
[2020-03-01] MEDS ORDERED: ENOXAPARIN 40 MG/0.4 ML SYRINGE SUBCUT ONE (11:06)
[2020-03-01] MEDS: FAMOTIDINE 20 MG TABLET PO SCH (11:38)
[2020-03-01 11:57] LABS: PT Patient Result 10.7 SECS (9.8-11.9)
[2020-03-01] MEDS: ENOXAPARIN 80 MG/0.8 ML SYRINGE SUBCUT SCH (20:57)
[2020-03-02] MEDS: DEXTROSE 5% NACL 0.45% 1,000 ML IV SCH ×3 (04:32→21:20)
[2020-03-02 08:41] LABS: Basophils % 0.4 % (0.0-0.8); Eosinophils # 0.4 10*3/uL (0.0-0.87); Eosinophils % 4.1 % (0.00-10.9); Hematocrit 22.7 VOL% (42.0-52.0); Hemoglobin 7.1 GM/DL (14.0-18.0); Immature Granulocytes % 0.5 %; Immature Granulocytes Absolute 0.04 #; Lymphocytes # 2.7 10*3/uL (1.4-4.0); Lymphocytes % 31.3 % (21.2-54.2); Mean Corpuscular HGB Conc 31.3 GM/DL (32-36); Monocytes % 7.4 % (1.7-12.7); Neutrophils % 56.3 % (38.7-73.9); Platelet Count 323 T/CUMM (130-400); Red Blood Count 2.34 MC/CUMM (3.8-5.5); Red Cell Distribution Width 16.4 % (9.3-17.3); White Blood Count 8.5 T/CUMM (4-12)
[2020-03-02 08:51] LABS: Calcium 8.4 MG/DL (8.5-10.1)
[2020-03-02] MEDS: MULTIVITAMIN (CENTRUM) TABLET PO SCH (08:52)
[2020-03-02] MEDS: FAMOTIDINE 20 MG TABLET PO SCH (08:52)
[2020-03-02] MEDS: ASCORBIC ACID 500 MG TABLET PO SCH (08:52)
[2020-03-02] MEDS: ENOXAPARIN 80 MG/0.8 ML SYRINGE SUBCUT SCH (08:53)
[2020-03-02] MEDS: cefTRIAXone 1,000 MG in SYRINGE 1 EACH IV SCH (08:53)
[2020-03-02] MEDS: IRON SUCROSE 200 MG in SODIUM CHLORIDE 0.9% 100 ML IV SCH (09:40)
[2020-03-02 09:46] LABS: Anisocytosis 1+; Platelet Estimate Normal
[2020-03-02] MEDS ORDERED: FLUCONAZOLE 200 MG TABLET PO ONE (10:20)
[2020-03-02] MEDS ORDERED: LACTATED RINGERS 1,000 ML IV ONE (10:39)
[2020-03-02 10:53] LABS: Albumin 1.4 G/DL (3.4-5.0); Bilirubin,Direct 0.34 MG/DL (0.0-0.20); Bilirubin,Indirect 0.4 MG/DL (0.0-1.0); Bilirubin,Total 0.7 MG/DL (0.2-1.0); Total Protein 7.4 G/DL (6.4-8.3)
[2020-03-02] MEDS ORDERED: MEROPENEM 500 MG in SODIUM CHLORIDE 0.9% 100 ML IV SCH (11:00)
[2020-03-02] MEDS ORDERED: COLISTIMETHATE IV SCH ×2 (11:00→21:00)
[2020-03-02] MEDS ORDERED: SODIUM CHLORIDE 0.9% IV SCH ×2 (11:00→21:00)
[2020-03-02] MEDS ORDERED: COLISTIMETHATE 300 MG in SODIUM CHLORIDE 0.9% 100 ML IV ONE (12:00)
[2020-03-02] MEDS: DIAZEPAM 5 MG TABLET PO SCH ×2 (14:05→21:17)
[2020-03-02] MEDS: VANCOMYCIN INJ 1,000 MG in SODIUM CHLORIDE 0.9% 250 ML IV SCH (14:08)
[2020-03-02] MEDS: LACTOBACILLUS ACIDOPHILUS/BULGARICUS CHEW TABLET PO SCH ×2 (15:55→21:18)
[2020-03-02] MEDS ORDERED: DIAZEPAM 5 MG TABLET PO SCH (21:00)
[2020-03-03] MEDS: DEXTROSE 5% NACL 0.45% 1,000 ML IV SCH ×3 (04:43→21:44)
[2020-03-03] MEDS: ENOXAPARIN 80 MG/0.8 ML SYRINGE SUBCUT SCH (09:30)
[2020-03-03] MEDS: FLUCONAZOLE 100 MG TABLET PO SCH (09:31)
[2020-03-03] MEDS: MULTIVITAMIN (CENTRUM) TABLET PO SCH (09:31)
[2020-03-03] MEDS: ASCORBIC ACID 500 MG TABLET PO SCH (09:31)
[2020-03-03] MEDS: DIAZEPAM 5 MG TABLET PO SCH ×2 (09:31→20:25)
[2020-03-03] MEDS: LACTOBACILLUS ACIDOPHILUS/BULGARICUS CHEW TABLET PO SCH ×2 (09:32→20:30)
[2020-03-03] MEDS: FAMOTIDINE 20 MG TABLET PO SCH (09:32)
[2020-03-03] MEDS: IRON SUCROSE 200 MG in SODIUM CHLORIDE 0.9% 100 ML IV SCH (09:41)
[2020-03-03 09:47] LABS: Basophils % 0.3 % (0.0-0.8); Eosinophils # 0.4 10*3/uL (0.0-0.87); Eosinophils % 4.8 % (0.00-10.9); Hematocrit 21.5 VOL% (42.0-52.0); Hemoglobin 6.7 GM/DL (14.0-18.0); Immature Granulocytes % 0.6 %; Immature Granulocytes Absolute 0.05 #; Lymphocytes # 3.5 10*3/uL (1.4-4.0); Lymphocytes % 40.6 % (21.2-54.2); Mean Corpuscular HGB Conc 31.2 GM/DL (32-36); Mean Corpuscular Volume 94.7 FL (87-102); Mean Platelet Volume 10.1 FL (9.6-12.0); Monocytes % 6.6 % (1.7-12.7); Neutrophils % 47.1 % (38.7-73.9); Platelet Count 331 T/CUMM (130-400); Red Blood Count 2.27 MC/CUMM (3.8-5.5); Red Cell Distribution Width 15.8 % (9.3-17.3); White Blood Count 8.7 T/CUMM (4-12)
[2020-03-03 10:08] LABS: Albumin 1.4 G/DL (3.4-5.0); Bilirubin,Total 1.2 MG/DL (0.2-1.0); Calcium 8.4 MG/DL (8.5-10.1); Osmolality,Calculated 276.7 MOS/KG (273-304); Total Protein 7.2 G/DL (6.4-8.3)
[2020-03-03] MEDS: VANCOMYCIN INJ 1,000 MG in SODIUM CHLORIDE 0.9% 250 ML IV SCH (15:03)
[2020-03-03] MEDS: COLISTIMETHATE 150 MG in SODIUM CHLORIDE 0.9% 100 ML IV SCH (21:10)
[2020-03-04] MEDS: DEXTROSE 5% NACL 0.45% 1,000 ML IV SCH ×2 (03:32→20:02)
[2020-03-04] MEDS: DIAZEPAM 5 MG TABLET PO SCH ×2 (08:37→23:27)
[2020-03-04] MEDS: FLUCONAZOLE 100 MG TABLET PO SCH (11:07)
[2020-03-04] MEDS: MULTIVITAMIN (CENTRUM) TABLET PO SCH (11:07)
[2020-03-04] MEDS: LACTOBACILLUS ACIDOPHILUS/BULGARICUS CHEW TABLET PO SCH ×2 (11:08→20:43)
[2020-03-04] MEDS: FAMOTIDINE 20 MG TABLET PO SCH (11:08)
[2020-03-04] MEDS: ASCORBIC ACID 500 MG TABLET PO SCH (11:08)
[2020-03-04] MEDS: ENOXAPARIN 80 MG/0.8 ML SYRINGE SUBCUT SCH (11:08)
[2020-03-04] MEDS: COLISTIMETHATE 150 MG in SODIUM CHLORIDE 0.9% 100 ML IV SCH ×2 (11:09→20:44)
[2020-03-04] MEDS: POLYETHYLENE GLYCOL POWDER 17 GM PACK PO SCH (13:54)
[2020-03-04] MEDS: LINEZOLID INJ 600 MG in PREMIX 1 EACH IV SCH (13:55)
[2020-03-04 15:03] LABS: Hematocrit 19.9 VOL% (42.0-52.0)
[2020-03-04 15:04] LABS: Calcium 8.6 MG/DL (8.5-10.1); Osmolality,Calculated 275.8 MOS/KG (273-304)
[2020-03-04] MEDS ORDERED: SODIUM CHLORIDE 0.9% 1,000 ML IV PRN (15:14)
[2020-03-04] MEDS: OXYBUTYNIN XL 15 MG TABLET PO SCH (20:43)
[2020-03-05] MEDS: LINEZOLID INJ 600 MG in PREMIX 1 EACH IV SCH ×2 (00:53→12:18)
[2020-03-05] MEDS: DEXTROSE 5% NACL 0.45% 1,000 ML IV SCH ×3 (07:40→12:10)
[2020-03-05] MEDS: ASCORBIC ACID 500 MG TABLET PO SCH (09:11)
[2020-03-05] MEDS: MULTIVITAMIN (CENTRUM) TABLET PO SCH (09:11)
[2020-03-05] MEDS: FAMOTIDINE 20 MG TABLET PO SCH (09:12)
[2020-03-05] MEDS: FLUCONAZOLE 100 MG TABLET PO SCH (09:12)
[2020-03-05] MEDS: POLYETHYLENE GLYCOL POWDER 17 GM PACK PO SCH (09:13)
[2020-03-05] MEDS: DIAZEPAM 5 MG TABLET PO SCH ×2 (09:13→21:15)
[2020-03-05] MEDS: LACTOBACILLUS ACIDOPHILUS/BULGARICUS CHEW TABLET PO SCH ×2 (09:13→21:15)
[2020-03-05] MEDS: COLISTIMETHATE 150 MG in SODIUM CHLORIDE 0.9% 100 ML IV SCH (09:13)
[2020-03-05 09:16] LABS: Hematocrit 27.6 VOL% (42.0-52.0)
[2020-03-05 09:17] LABS: Hemoglobin 8.6 GM/DL (14.0-18.0)
[2020-03-05 17:25] LABS: Calcium 9.3 MG/DL (8.5-10.1); Osmolality,Calculated 274.8 MOS/KG (273-304)
[2020-03-05] MEDS: OXYBUTYNIN XL 15 MG TABLET PO SCH (21:15)
[2020-03-06] MEDS: LINEZOLID INJ 600 MG in PREMIX 1 EACH IV SCH (01:40)
[2020-03-06] MEDS ORDERED: LACTATED RINGERS 500 ML IV ONE (07:39)
[2020-03-06] MEDS ORDERED: LACTATED RINGERS 1,000 ML IV SCH (08:00)
[2020-03-06] MEDS ORDERED: COLISTIMETHATE 150 MG in SODIUM CHLORIDE 0.9% 100 ML IV SCH (09:00)
[2020-03-06] MEDS: ASCORBIC ACID 500 MG TABLET PO SCH (09:06)
[2020-03-06] MEDS: FAMOTIDINE 20 MG TABLET PO SCH (09:06)
[2020-03-06] MEDS: POLYETHYLENE GLYCOL POWDER 17 GM PACK PO SCH (09:06)
[2020-03-06] MEDS: FLUCONAZOLE 100 MG TABLET PO SCH (09:06)
[2020-03-06] MEDS: DIAZEPAM 5 MG TABLET PO SCH (09:06)
[2020-03-06] MEDS: MULTIVITAMIN (CENTRUM) TABLET PO SCH (09:06)
[2020-03-06] MEDS: LACTOBACILLUS ACIDOPHILUS/BULGARICUS CHEW TABLET PO SCH (09:13)
[2020-03-06 11:31] VITALS: BP 103/51
[2020-03-06 12:37] LABS: Basophils # 0.1 10*3/uL (0.0-0.2); Basophils % 0.7 % (0.0-0.8); Eosinophils # 0.5 10*3/uL (0.0-0.87); Eosinophils % 4.8 % (0.00-10.9); Hematocrit 27.4 VOL% (42.0-52.0); Hemoglobin 8.3 GM/DL (14.0-18.0); Immature Granulocytes % 0.5 %; Immature Granulocytes Absolute 0.05 #; Lymphocytes # 3.9 10*3/uL (1.4-4.0); Lymphocytes % 39.2 % (21.2-54.2); Mean Corpuscular HGB Conc 30.3 GM/DL (32-36); Mean Corpuscular Volume 96.8 FL (87-102); Monocytes % 5.7 % (1.7-12.7); Neutrophils % 49.1 % (38.7-73.9); Platelet Count 413 T/CUMM (130-400); Red Blood Count 2.83 MC/CUMM (3.8-5.5); Red Cell Distribution Width 16.1 % (9.3-17.3); White Blood Count 9.9 T/CUMM (4-12)
[2020-03-06 12:55] LABS: Calcium 9.1 MG/DL (8.5-10.1); Osmolality,Calculated 274.8 MOS/KG (273-304)
[2020-03-06] MEDS ORDERED: LINEZOLID 600 MG TABLET PO SCH (21:00)
== END 2020-03-06 13:38 | DRG 698 ==
LOC: EDBD → EDUNIT# → N.ED 14:38 → SUATTDRO 18:49 → N.EDINP 18:49 → N.TELES 20:06
PROVIDERS: ADMIT Internal Medicine; ATTEND Internal Medicine

== ENCOUNTER 2020-05-29 09:23 | Inpatient (IN) ==
[2020-05-29] MEDS ORDERED: SODIUM CHLORIDE 0.9% 1,000 ML IV STA (09:47)
[2020-05-29 10:30] LABS: Apearance,Urine Turbid (Clear); Bacteria,Urine Many /HPF (Few); Glucose,Urine (UA) Negative (Negative); Ketones,Urine Negative (Negative); Mucus,Urine Few /LPF (Occasional); Nitrite,Urine Negative (Negative); Protein,Urine 100 MG/DL; RBC,Urine 208 /HPF (0-4); Squamous Epithelial Cell,Urine Moderate /HPF (0-10); Urine Color Amber (Yellow); WBC,Urine 3949 /HPF (0-6)
[2020-05-29 10:31] LABS: Bilirubin,Urine Small mg/dL (Negative); Blood, Urine Large mg/dL (Negative)
[2020-05-29 11:05] LABS: Basophils % 0.1 % (0.0-0.8); Eosinophils % 0.1 % (0.00-10.9); Hematocrit 21.6 VOL% (42.0-52.0); Immature Granulocytes % 1.1 %; Immature Granulocytes Absolute 0.18 #; Lymphocytes # 2.6 10*3/uL (1.4-4.0); Lymphocytes % 15.5 % (21.2-54.2); Mean Corpuscular HGB Conc 27.8 GM/DL (32-36); Mean Corpuscular Volume 99.5 FL (87-102); Mean Platelet Volume 10.4 FL (9.6-12.0); Monocytes % 5.7 % (1.7-12.7); Neutrophils % 77.5 % (38.7-73.9); Platelet Count 502 T/CUMM (130-400); Red Blood Count 2.17 MC/CUMM (3.8-5.5); Red Cell Distribution Width 17.2 % (9.3-17.3); White Blood Count 16.9 T/CUMM (4-12)
[2020-05-29 11:10] LABS: Alanine Aminotransferase 36 U/L (16-61); Albumin 0.8 G/DL (3.4-5.0); Alkaline Phosphatase 446 U/L (45-117); Aspartate Amino Transferase 36 U/L (0-37); Blood Urea Nitrogen 47 MG/DL (7-18); Calcium 7.2 MG/DL (8.5-10.1); Estimated Glom Filtration Rate 33 ML/MIN; Glucose 104 MG/DL (74-106); Osmolality,Calculated 286.7 MOS/KG (273-304)
[2020-05-29 11:24] LABS: Hypochromasia 2+; Microcytosis 1+; Ovalocytes Slight; Platelet Estimate Increased
[2020-05-29] MEDS ORDERED: CEFEPIME 1,000 MG in SODIUM CHLORIDE 0.9% 100 ML IV STA (11:38)
[2020-05-29] MEDS ORDERED: SODIUM CHLORIDE 0.9% 1,000 ML IV PRN (11:39)
[2020-05-29] MEDS ORDERED: ACETAMINOPHEN 325 MG TABLET PO PRN (12:35)
[2020-05-29] MEDS ORDERED: LACTATED RINGERS 500 ML IV ONE (14:15)
[2020-05-29] MEDS ORDERED: NOREPINEPHRINE 4 MG/4 ML VIAL IV ONE (14:47)
[2020-05-29] MEDS: LACTATED RINGERS 1,000 ML IV SCH ×2 (14:49→18:55)
[2020-05-29] MEDS: NOREPINEPHRINE 8 MG in SODIUM CHLORIDE 0.9% 242 ML IV PRN (14:50)
[2020-05-29] MEDS: PANTOPRAZOLE 40 MG TABLET PO SCH (15:40)
[2020-05-29] MEDS: ENOXAPARIN 30 MG/0.3 ML SYRINGE SUBCUT SCH (21:41)
[2020-05-30] MEDS: LACTATED RINGERS 1,000 ML IV SCH ×4 (01:36→16:39)
[2020-05-30] MEDS: NOREPINEPHRINE 8 MG in SODIUM CHLORIDE 0.9% 242 ML IV PRN ×2 (04:36→19:56)
[2020-05-30 04:37] LABS: Basophils # 0.1 10*3/uL (0.0-0.2); Basophils % 0.2 % (0.0-0.8); Eosinophils % 0.1 % (0.00-10.9); Hematocrit 31.9 VOL% (42.0-52.0); Hemoglobin 9.7 GM/DL (14.0-18.0); Immature Granulocytes % 2.9 %; Lymphocytes # 5.5 10*3/uL (1.4-4.0); Lymphocytes % 23.3 % (21.2-54.2); Mean Corpuscular HGB Conc 30.4 GM/DL (32-36); Mean Corpuscular Volume 92.5 FL (87-102); Mean Platelet Volume 10.2 FL (9.6-12.0); Monocytes % 7.7 % (1.7-12.7); Neutrophils % 65.8 % (38.7-73.9); Platelet Count 585 T/CUMM (130-400); Red Blood Count 3.45 MC/CUMM (3.8-5.5); Red Cell Distribution Width 17.5 % (9.3-17.3); White Blood Count 23.8 T/CUMM (4-12)
[2020-05-30 05:07] LABS: Hypochromasia 1+; Lymphocytes 21 % (20-55); Microcytosis Slight; Ovalocytes Slight; Platelet Estimate Increased; Segmented Neutrophils 70 % (50-85); Total Cells Counted 100
[2020-05-30 05:25] LABS: Calcium 7.3 MG/DL (8.5-10.1); Osmolality,Calculated 288.4 MOS/KG (273-304)
[2020-05-30] MEDS: PANTOPRAZOLE 40 MG TABLET PO SCH ×2 (08:49→10:10)
[2020-05-30] MEDS: SODIUM HYPOCHLORITE 0.25% IRRIG 473 ML BOTTLE TOP SCH (10:07)
[2020-05-30] MEDS: SKIN HEALING OINT (AQUAPHOR) 50 GM TUBE TOP PRN (10:07)
[2020-05-30] MEDS ORDERED: MORPHINE 4 MG/1 ML VIAL IV ONE (13:00)
[2020-05-30] MEDS: ONDANSETRON 4 MG/2 ML VIAL IV PRN (16:23)
[2020-05-30] MEDS: DEXTROSE 5% NACL 0.45% 1,000 ML IV SCH (16:41)
[2020-05-30] MEDS: ENOXAPARIN 30 MG/0.3 ML SYRINGE SUBCUT SCH (20:10)
[2020-05-31] MEDS: DEXTROSE 5% NACL 0.45% 1,000 ML IV SCH ×3 (01:33→17:05)
[2020-05-31 04:39] LABS: Basophils % 0.2 % (0.0-0.8); Eosinophils % 0.3 % (0.00-10.9); Hematocrit 35.4 VOL% (42.0-52.0); Hemoglobin 10.7 GM/DL (14.0-18.0); Immature Granulocytes % 2.7 %; Lymphocytes # 4.9 10*3/uL (1.4-4.0); Lymphocytes % 32.8 % (21.2-54.2); Mean Corpuscular HGB Conc 30.2 GM/DL (32-36); Mean Corpuscular Volume 92.9 FL (87-102); Mean Platelet Volume 10.3 FL (9.6-12.0); Monocytes % 5.2 % (1.7-12.7); Neutrophils % 58.8 % (38.7-73.9); Platelet Count 483 T/CUMM (130-400); Red Blood Count 3.81 MC/CUMM (3.8-5.5); Red Cell Distribution Width 17.6 % (9.3-17.3)
[2020-05-31 05:04] LABS: Osmolality,Calculated 285.8 MOS/KG (273-304)
[2020-05-31 05:05] LABS: Band Neutrophils 1 % (0-10); Eosinophils 2 % (0-10); Hypochromasia 1+; Lymphocytes 31 % (20-55); Segmented Neutrophils 64 % (50-85); Total Cells Counted 100
[2020-05-31 05:06] LABS: Microcytosis 1+; Polychromasia Slight; Target Cells Slight
[2020-05-31] MEDS: NOREPINEPHRINE 8 MG in SODIUM CHLORIDE 0.9% 242 ML IV PRN (10:18)
[2020-05-31] MEDS: ALBUMIN 25% 25 GM in PREMIX 1 EACH IV SCH ×2 (10:34→17:05)
[2020-05-31] MEDS: PANTOPRAZOLE 40 MG TABLET PO SCH (10:55)
[2020-05-31] MEDS: SODIUM HYPOCHLORITE 0.25% IRRIG 473 ML BOTTLE TOP SCH (14:47)
[2020-05-31] MEDS ORDERED: SODIUM BICARBONATE 50 MEQ/50 ML VIAL IV ONE (15:36)
[2020-05-31 15:52] LABS: ABG Base Excess -10.4 MMOL/L (-2.5-2.5); ABG HCO3 16.1 MMOL/L (20-26); ABG Oxygen Saturation 98.7 % (95-100); ABG PCO2 28.2 MM HG (35-48); ABG PH 7.323 (7.35-7.45); ABG TCO2 13.7 MMOL/L (23-27); Pt O2 Delivery Device Room Air
[2020-05-31] MEDS: ENOXAPARIN 30 MG/0.3 ML SYRINGE SUBCUT SCH (20:10)
[2020-05-31] MEDS: SODIUM BICARB INJ 100 MEQ in DEXTROSE 5% 1,000 ML IV SCH (20:11)
[2020-06-01 04:59] LABS: Basophils % 0.1 % (0.0-0.8); Eosinophils # 0.2 10*3/uL (0.0-0.87); Eosinophils % 1.4 % (0.00-10.9); Hematocrit 26.3 VOL% (42.0-52.0); Immature Granulocytes % 1.7 %; Immature Granulocytes Absolute 0.22 #; Lymphocytes # 4.6 10*3/uL (1.4-4.0); Lymphocytes % 35.2 % (21.2-54.2); Mean Corpuscular HGB Conc 30.4 GM/DL (32-36); Mean Corpuscular Volume 91.6 FL (87-102); Mean Platelet Volume 10.1 FL (9.6-12.0); Monocytes % 5.2 % (1.7-12.7); NRBC # 0.02 10*3/uL; Neutrophils % 56.4 % (38.7-73.9); Platelet Count 318 T/CUMM (130-400); Red Blood Count 2.87 MC/CUMM (3.8-5.5); Red Cell Distribution Width 17.2 % (9.3-17.3)
[2020-06-01 06:09] LABS: Calcium 7.1 MG/DL (8.5-10.1); Osmolality,Calculated 293.4 MOS/KG (273-304)
[2020-06-01] MEDS: SODIUM BICARB INJ 100 MEQ in DEXTROSE 5% 1,000 ML IV SCH (06:12)
[2020-06-01] MEDS ORDERED: POTASSIUM CHLORIDE 20 MEQ TABLET PO ONE (09:07)
[2020-06-01] MEDS ORDERED: MAGNESIUM SULF RIDER 2 GM in PREMIX 1 EACH IV ONE (09:07)
[2020-06-01] MEDS: PANTOPRAZOLE 40 MG TABLET PO SCH (09:57)
[2020-06-01] MEDS: LACTATED RINGERS 1,000 ML IV SCH ×2 (10:01→20:11)
[2020-06-01] MEDS: NOREPINEPHRINE 8 MG in SODIUM CHLORIDE 0.9% 242 ML IV PRN (10:50)
[2020-06-01] MEDS: SODIUM HYPOCHLORITE 0.25% IRRIG 473 ML BOTTLE TOP SCH (16:50)
[2020-06-01] MEDS: ENOXAPARIN 30 MG/0.3 ML SYRINGE SUBCUT SCH (21:30)
[2020-06-02 03:35] LABS: Basophils % 0.1 % (0.0-0.8); Eosinophils # 0.2 10*3/uL (0.0-0.87); Eosinophils % 1.2 % (0.00-10.9); Hematocrit 27.5 VOL% (42.0-52.0); Hemoglobin 8.3 GM/DL (14.0-18.0); Immature Granulocytes % 0.9 %; Immature Granulocytes Absolute 0.14 #; Lymphocytes # 4.5 10*3/uL (1.4-4.0); Lymphocytes % 29.7 % (21.2-54.2); Mean Corpuscular HGB Conc 30.2 GM/DL (32-36); Mean Corpuscular Volume 91.1 FL (87-102); Mean Platelet Volume 10.6 FL (9.6-12.0); Monocytes % 5.8 % (1.7-12.7); NRBC # 0.02 10*3/uL; Neutrophils % 62.3 % (38.7-73.9); Platelet Count 305 T/CUMM (130-400); Red Blood Count 3.02 MC/CUMM (3.8-5.5); Red Cell Distribution Width 16.8 % (9.3-17.3)
[2020-06-02 03:50] LABS: Calcium 7.3 MG/DL (8.5-10.1); Osmolality,Calculated 288.3 MOS/KG (273-304)
[2020-06-02 03:54] LABS: Hypochromasia 1+; Platelet Estimate Normal
[2020-06-02] MEDS: LACTATED RINGERS 1,000 ML IV SCH ×3 (05:40→19:00)
[2020-06-02] MEDS ORDERED: POTASSIUM CHLORIDE 20 MEQ TABLET PO PRN (08:07)
[2020-06-02] MEDS ORDERED: MAGNESIUM SULF RIDER 2 GM in PREMIX 1 EACH IV PRN (08:08)
[2020-06-02] MEDS: NOREPINEPHRINE 8 MG in SODIUM CHLORIDE 0.9% 242 ML IV PRN (08:13)
[2020-06-02] MEDS: PANTOPRAZOLE 40 MG TABLET PO SCH ×2 (09:10→21:26)
[2020-06-02] MEDS: SODIUM HYPOCHLORITE 0.25% IRRIG 473 ML BOTTLE TOP SCH (09:11)
[2020-06-02] MEDS: ONDANSETRON 4 MG/2 ML VIAL IV PRN (09:27)
[2020-06-02] MEDS ORDERED: LACTATED RINGERS 1,000 ML IV ONE (10:08)
[2020-06-02] MEDS: MIDODRINE 5 MG TABLET PO SCH ×3 (10:49→21:26)
[2020-06-02 12:00] LABS: Hematocrit 24.8 VOL% (42.0-52.0); Hemoglobin 7.4 GM/DL (14.0-18.0)
[2020-06-02] MEDS: SKIN HEALING OINT (AQUAPHOR) 50 GM TUBE TOP PRN (18:18)
[2020-06-03 00:20] VITALS: BP 79/47
[2020-06-03 03:22] LABS: Basophils % 0.1 % (0.0-0.8); Eosinophils # 0.1 10*3/uL (0.0-0.87); Eosinophils % 1.3 % (0.00-10.9); Hematocrit 31.3 VOL% (42.0-52.0); Hemoglobin 9.9 GM/DL (14.0-18.0); Immature Granulocytes % 1.3 %; Immature Granulocytes Absolute 0.14 #; Lymphocytes # 3.2 10*3/uL (1.4-4.0); Lymphocytes % 29.5 % (21.2-54.2); Mean Corpuscular HGB Conc 31.6 GM/DL (32-36); Mean Corpuscular Volume 93.7 FL (87-102); Neutrophils % 61.8 % (38.7-73.9); Platelet Count 204 T/CUMM (130-400); Red Blood Count 3.34 MC/CUMM (3.8-5.5); Red Cell Distribution Width 15.9 % (9.3-17.3); White Blood Count 10.9 T/CUMM (4-12)
[2020-06-03] MEDS ORDERED: SODIUM CHLORIDE 0.9% 100 ML IV ONE (03:26)
[2020-06-03 03:37] LABS: Calcium 7.2 MG/DL (8.5-10.1)
[2020-06-03] MEDS: LACTATED RINGERS 1,000 ML IV SCH ×4 (05:42→17:50)
[2020-06-03] MEDS: NOREPINEPHRINE 8 MG in SODIUM CHLORIDE 0.9% 242 ML IV PRN (05:47)
[2020-06-03] MEDS: SODIUM HYPOCHLORITE 0.25% IRRIG 473 ML BOTTLE TOP SCH (08:00)
[2020-06-03] MEDS: PANTOPRAZOLE 40 MG TABLET PO SCH ×2 (08:00→20:59)
[2020-06-03] MEDS: MIDODRINE 5 MG TABLET PO SCH ×3 (08:00→20:59)
[2020-06-03 11:33] LABS: Hematocrit 35.7 VOL% (42.0-52.0); Hemoglobin 11.1 GM/DL (14.0-18.0)
[2020-06-03] MEDS: ONDANSETRON 4 MG/2 ML VIAL IV PRN (15:47)
[2020-06-04] MEDS: LACTATED RINGERS 1,000 ML IV SCH ×3 (04:48→18:31)
[2020-06-04 04:55] LABS: Basophils % 0.2 % (0.0-0.8); Eosinophils # 0.2 10*3/uL (0.0-0.87); Eosinophils % 1.5 % (0.00-10.9); Hematocrit 35.7 VOL% (42.0-52.0); Hemoglobin 11.5 GM/DL (14.0-18.0); Immature Granulocytes % 0.6 %; Immature Granulocytes Absolute 0.09 #; Lymphocytes # 4.7 10*3/uL (1.4-4.0); Lymphocytes % 29.6 % (21.2-54.2); Mean Corpuscular HGB Conc 32.2 GM/DL (32-36); Mean Corpuscular Volume 91.8 FL (87-102); Mean Platelet Volume 11.3 FL (9.6-12.0); Monocytes % 5.8 % (1.7-12.7); Neutrophils % 62.3 % (38.7-73.9); Platelet Count 243 T/CUMM (130-400); Red Blood Count 3.89 MC/CUMM (3.8-5.5); Red Cell Distribution Width 16.3 % (9.3-17.3); White Blood Count 15.8 T/CUMM (4-12)
[2020-06-04 05:18] LABS: Platelet Estimate Adequate
[2020-06-04 05:19] LABS: Hypochromasia Slight
[2020-06-04 05:38] LABS: Calcium 7.4 MG/DL (8.5-10.1); Osmolality,Calculated 287.1 MOS/KG (273-304)
[2020-06-04] MEDS: PANTOPRAZOLE 40 MG TABLET PO SCH (08:42)
[2020-06-04] MEDS: MIDODRINE 5 MG TABLET PO SCH ×2 (08:42→14:49)
[2020-06-04] MEDS: SODIUM HYPOCHLORITE 0.25% IRRIG 473 ML BOTTLE TOP SCH (14:49)
[2020-06-04] MEDS: SKIN HEALING OINT (AQUAPHOR) 50 GM TUBE TOP PRN (15:10)
== END 2020-06-04 18:52 | DRG 871 ==
LOC: EDUNIT# → N.ED 09:23 → SUATTDRO 11:53 → N.EDINP 11:53 → N.ICU 13:30
PROVIDERS: ADMIT Internal Medicine; ATTEND Internal Medicine